=== PATIENT | female | born 1970 ===

== ENCOUNTER 2019-01-05 22:48 | Emergency (ER) | payer SELFPAY ==
[2019-01-05 23:19] VITALS: BP 112/72; PULSE 89; RESP 20; TEMP 98.5; O2SAT 97
--- NOTE | 2019-01-05 23:49 | C.PDOC ---
History Of Present Illness 48 year old female presents with cough and nasal congestion for the past month. States her doctor gave her cough syrup which did not help, she went back to the office a week ago, given neb treatment in the office and Rx for zyrtec and flonase which she reports is not helping. Denies fever or other medical symptoms. She has not taken anything over the past 3 days for her symptoms. Time Seen by Provider: 01/05/19 23:22 Chief Complaint (Nursing): Cough, Cold, Congestion History Per: Patient History/Exam Limitations: no limitations Onset/Duration Of Symptoms: Hrs Current Symptoms Are (Timing): Still Present Location Of Pain: None Sick Contacts (Context): None Associated Symptoms: Cough, Nasal Congestion. denies: Fever Ear Symptoms: Bilateral: None Recent travel outside of the [place]: No Past Medical History Reviewed: Historical Data, Nursing Documentation, Vital Signs Vital Signs: Last Vital Signs Temp 98.5 F 01/05/19 23:07 Pulse 89 01/05/19 23:07 Resp 20 01/05/19 23:07 BP 112/72 01/05/19 23:07 Pulse Ox 97 01/05/19 23:07 Primary Care Provider: Non [facility] Provider, Surgical History: Appendectomy, Cholecystectomy Family History: States: Unknown Family Hx - Social History Hx Alcohol Use: No Hx Substance Use: No - Immunization History Hx Tetanus Toxoid Vaccination: No Hx Influenza Vaccination: No Hx Pneumococcal Vaccination: No Review Of Systems Constitutional: Negative for: Fever, Chills ENT: Positive for: Nose Congestion. Negative for: Throat Pain Respiratory: Positive for: Cough. Negative for: Wheezing Skin: Negative for: Rash Physical Exam - Physical Exam Appears: Well, Non-toxic, No Acute Distress Skin: Normal Color, Warm Head: Atraumatic, Normacephalic, Other (No pain with percussion of sinuses) Eye(s): bilateral: Normal Inspection Ear(s): Bilateral: Normal Nose: Other (Gross enlargement of turbinates bilaterally) Oral Mucosa: Moist Throat: Normal (No swelling or injection), No Exudate Neck: Normal ROM, Supple Respiratory: Normal Breath Sounds, No Accessory Muscle Use, Other (Normal inspiratory effort) Neurological/Psych: Oriented x3, Normal Speech ED Course And Treatment O2 Sat by Pulse Oximetry: 97 (Room air) Pulse Ox Interpretation: Normal Medical Decision Making Medical Decision Making: Will treat for sinusitis, patient given zyrtec-d advised to stop current zyrtec, albuterol inhaler given, stable for dc to follow up with primary. Disposition Counseled Patient/Family Regarding: Diagnosis, Need For Followup, Rx Given - Disposition Disposition: HOME/ ROUTINE Disposition Time: 23:49 Condition: STABLE Prescriptions: Albuterol HFA [Ventolin HFA 90 mcg/actuation (8 g)] 2 puff IH [id number] #1 inhaler Cetirizine HCl/Pseudoephedrine [Zyrtec-D Tablet] 1 each PO DAILY #14 tab.er.12h Instructions: Acute Bronchitis, Adult (DC), Rhinosinusitis (ED) Forms: Gen Discharge Inst Telugu, P[employer] (Telugu) Print Language: NIUEAN - Clinical Impression Clinical Impression: Bronchitis, Post-nasal drip - PA / [employer] / Resident Statement MD/DO has reviewed & agrees with the documentation as recorded. - Scribe Statement The provider has reviewed the documentation as recorded by the Scribsaadia Perez All medical record entries made by the Cecyibsaadia were at my direction and personally dictated by me. I have reviewed the chart and agree that the record accurately reflects my personal performance of the history, physical exam, medical decision making, and the department course for this patient. I have also personally directed, reviewed, and agree with the discharge instructions and disposition.
== END 2019-01-05 23:56 | disposition home or self-care (01) ==
LOC: C.ER 22:48
DX: J40 Bronchitis, not specified as acute or chronic (principal); R09.82 Postnasal drip